=== PATIENT | female | born 2000 | race African-American/Black ===

== ENCOUNTER 2022-12-14 19:18 | Emergency (ER) | payer BC, OTHER, SELFPAY ==
[2022-12-14] VITALS (16 sets, daily range): BP systolic 110–134; BP diastolic 68–90; PULSE 55–93; RESP 8–25; TEMP 37; O2SAT 99–100; BMI 30.9
--- NOTE | 2022-12-14 19:33 | ECG_ITS ---
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
--- NOTE | 2022-12-14 19:35 | ED_ITS ---
HPI - General Adult General Chief complaint: Chest Pain Stated complaint: LT FLANK/BACK PAIN Time Seen by Provider: 12/14/22 19:27 Source: patient Mode of arrival: walk-in History of Present Illness HPI narrative: patient is a 22-year-old female who presents to the emergency department for the evaluation of various complaints. Patient states one week ago she developed twitching in the muscles of her thighs bilaterally. She states she thought she might be dehydrated so she has been drinking electrolyte drinks without improvement. She states five days ago she developed pain in the left upper quadrant of the abdomen/left inferior rib cage with associated pain in the left thoracic back just adjacent to the thoracic spine. She denies fevers, cough, congestion. She has not had any vomiting. She has had diarrhea. She is not concerned for . She took ibuprofen yesterday but she states it gave her heartburn. she also reports occasional hot stinging pain to the left lower and right lower quadrants. She has no low abdominal pain at this time. She is notably anxious at initial interview. Related Data Previous Rx's Medication Instructions Recorded ondansetron 4 mg disintegrating 4 mg PO Q6H PRN nausea and 12/14/22 tablet vomiting #12 tabs pantoprazole 40 mg tablet,delayed 40 mg PO DAILY #7 tabs 12/14/22 release (Protonix) sucralfate 1 gram tablet (Carafate) 1 g PO Q6H PRN abdominal pain #12 12/14/22 tabs Allergies Allergy/AdvReac Type Severity Reaction Status Date / Time No Known Drug Allergies Allergy Verified 12/14/22 19:31 Review of Systems ROS Constitutional Denies: fever or chills Ears, nose, mouth, and throat Denies: throat pain Cardiovascular Reports: chest pain Respiratory Reports: shortness of breath; Denies: cough Gastrointestinal Reports: abdominal pain and diarrhea; Denies: nausea or vomiting Musculoskeletal Reports: back pain and muscle cramps; Denies: neck pain Integumentary/Breast Denies: rash Neurological Denies: headache Endocrine Denies: excessive urination PFSH PFSH Social History Smoking status: Current every day smoker Exam Narrative Exam Narrative: Gen.: Awake, alert, in no distress Head: Normocephalic, atraumatic ENT: Moist mucous membranes Respiratory: No respiratory distress, lungs clear bilaterally Cardio: Regular rate and rhythm Gastrointestinal: Abdomen is soft, nondistended and mildly tender in the left upper quadrant under the inferior left ribs. No guarding or rebound Extremities: Moves extremities equally, no injuries noted Psych: Normal mood and affect Neuro: No focal neuro deficit Skin: Warm, dry, intact Constitutional Vital Signs, click to edit/add: Last Vital Signs Temp 98.6 F 12/14/22 19:25 Pulse 72 12/14/22 21:40 Resp 24 12/14/22 21:40 BP 129/82 12/14/22 21:16 Pulse Ox 100 12/14/22 21:40 O2 Del Method Room Air 12/14/22 19:25 Course Vital Signs Vital signs: Vital Signs Temperature 98.6 F 12/14/22 19:25 Pulse Rate 91 H 12/14/22 19:25 Respiratory Rate 18 12/14/22 19:25 Blood Pressure 134/90 12/14/22 19:25 Pulse Oximetry 99 12/14/22 19:25 Oxygen Delivery Method Room Air 12/14/22 19:25 Temperature 98.6 F 12/14/22 19:25 Pulse Rate 72 12/14/22 21:40 Respiratory Rate 24 12/14/22 21:40 Blood Pressure 129/82 12/14/22 21:16 Pulse Oximetry 100 12/14/22 21:40 Oxygen Delivery Method Room Air 12/14/22 19:25 Medical Decision Making MDM Narrative Medical decision making narrative: patient was treated with IV fluids, she was agreeable to IV Protonix but declined Zofran and Norflex. Vital signs are stable in the Emergency Room, EKG, troponin and d-dimer are within normal limits. Patient with no evidence of anemia, sepsis or other significant abnormalities on labs. Bilirubin, LFTs and lipase are also within normal limits and abdomen is soft and benign in the Emergency Room. Chest and abdominal x-ray show no evidence of acute abnormalities. I had a lengthy discussion with the patient about her lab results and she is significantly relieved, she did become tearful and states that she has issues with anxiety, she has an appointment with her PCP this week to address this. She is very grateful for care. She is agreeable to home Protonix, Carafate and Zofran as needed. Return to the Emergency Room if symptoms change or worsen. Medical Records Medical records reviewed: Yes I reviewed the patient's medical records Lab Data Lab results reviewed: Yes I reviewed the patient's lab results Labs: Lab Results 12/14/22 12/14/22 Range/Units 19:32 19:45 WBC 12.5 H (4.0-11.0) 10^3/uL RBC 4.61 (4.20-5.40) 10^6/uL Hgb 14.5 (12.0-16.0) g/dL Hct 42.6 (36.0-48.0) % MCV 92.4 (81.0-99.0) fL MCH 31.5 (26.7-34.0) pg MCHC 34.0 (29.9-35.2) g/dL RDW 12.4 (11.0-15.0) % Plt Count 321 (150-450) 10^3/uL MPV 9.6 (9.5-13.5) fL Neut % (Auto) 69.0 (43.0-75.0) % Lymph % (Auto) 24.6 (20.5-60.0) % [place] % (Auto) 5.3 (1.7-12.0) % Eos % (Auto) 0.2 L (0.9-7.0) % Baso % (Auto) 0.5 (0.2-2.0) % Neut # (Auto) 8.6 H (1.4-6.5) 10^3/uL Lymph # (Auto) 3.1 (1.2-3.8) 10^3/uL [place] # (Auto) 0.7 (0.3-0.8) 10^3/uL Eos # (Auto) 0.0 (0.0-0.7) 10^3/uL Baso # (Auto) 0.1 (0.0-0.1) 10^3/uL Abs Immat Gran (auto) 0.05 H (0.00-0.03) 10^3/uL Imm/Tot Granulo (auto) 0.4 (0.0-0.5) % PT 10.6 (9.0-11.6) sec INR 1.00 APTT 26.7 (22.3-36.2) sec D-Dimer 0.26 (<=0.59) mg/L FEU Sodium 141 (136-145) mmol/L Potassium 3.5 (3.5-5.1) mmol/L Chloride 104 (98-107) mmol/L Carbon Dioxide 26.3 (21.0-32.0) mmol/L Anion Gap 14.2 BUN 10.0 (7.0-18.0) mg/dL Creatinine 1.11 H (0.55-1.02) mg/dL Est GFR ( Amer) >60 (>=60) Est GFR (Non-Af Amer) >60 (>=60) BUN/Creatinine Ratio 9.0 Glucose 80 (74-106) mg/dL Calcium 9.5 (8.5-10.1) mg/dL Total Bilirubin 0.4 (0.2-1.0) mg/dL AST 19 (15-37) U/L ALT 25 (14-59) U/L Alkaline Phosphatase 94 (46-116) U/L Troponin I High Sens <4.0 L (4.0-51.3) pg/mL Total Protein 8.4 H (6.4-8.2) g/dL Albumin 4.5 (3.4-5.0) g/dL Globulin 3.9 g/dL Albumin/Globulin Ratio 1.2 Lipase 77.0 (73.0-393.0) U/L Serum HCG, Qual Negative (NEGATIVE) Urine Color Lt. yellow (YELLOW) Urine Clarity Clear (CLEAR) Urine pH 6.5 (5.0-9.0) Ur Specific [place] <=1.005 A (1.005-1.025) Urine Protein Negative (NEG/TRACE) mg/dL Urine Glucose (UA) Negative (NEGATIVE) mg/dL Urine Ketones Negative (NEGATIVE) mg/dL Urine Occult Blood Large A (NEGATIVE) Urine Nitrite Negative (NEGATIVE) Urine Bilirubin Negative (NEGATIVE) Urine Urobilinogen 0.2 (0.2-1.0) EU/dL Ur Leukocyte Esterase Negative (NEGATIVE) Urine RBC None seen (0-2) #/HPF Urine WBC 50-75 A (NONE SEEN) #/HPF Ur Squamous Epith Cells Rare (NONE/RARE) #/LPF Urine Crystals None seen (None Seen) #/HPF Urine Bacteria None seen (NONE SEEN) #/HPF Urine Casts None seen (NONE SEEN) #/LPF Urine Mucus None seen (NONE SEEN) Ur Culture Indicated? No Monoscreen Negative (NEGATIVE) Imaging Data Abdominal x-ray: Attestation: I have reviewed the pertinent imaging results. Radiologist's impression: Procedure: XR acute abdomen series EXAM: XR acute abdomen series HISTORY: Chest pain, left upper quad pain COMPARISON: None. TECHNIQUE: AP chest and 2 views of the abdomen FINDINGS: The lung parenchyma is free of consolidation or infiltrate. No pneumothorax or pleural effusion. The heart is not enlarged. The cardiac, mediastinal and hilar contours are unremarkable. The bowel gas pattern is nonobstructed. No visualized free intraperitoneal air or intra-abdominal calcification. The osseous structures are normal. IMPRESSION: No visualized abnormality Electronically authenticated by: MARINA HERNANDEZ Date: 12/14/2022 21:18 ECG Data Attestation: I personally reviewed and interpreted this ECG as follows: (normal sinus rhythm at a rate of ninety-two, no acute ST elevation or ectopy. EKG reviewed by attending physician) Discharge Plan Discharge Chief Complaint: Chest Pain Clinical Impression: Abdominal pain, Chest pain Patient Disposition: Home, Self-Care Time of Disposition Decision: 21:39 Condition: Good Prescriptions / Home Meds: New sucralfate [Carafate] 1 gram tablet 1 g PO Q6H PRN (Reason: abdominal pain) Qty: 12 0RF pantoprazole [Protonix] 40 mg tablet,delayed release (DR/EC) 40 mg PO DAILY Qty: 7 0RF ondansetron 4 mg tablet,disintegrating 4 mg PO Q6H PRN (Reason: nausea and vomiting) Qty: 12 0RF Instructions: Chest Pain (ED), Abdominal Pain (ED) Stand Alone Forms: Portal Instructions Referrals: [facility] [Primary Care Provider] - 1 week Discharge Date/Time: 12/14/22 22:00
[2022-12-14 19:52] LABS: Basophils Absolute Auto 0.1 10^3/uL (0.0-0.1); Basophils Percent Auto 0.5 % (0.2-2.0); Eosinophils Percent Auto 0.2 % (0.9-7.0); Hematocrit 42.6 % (36.0-48.0); Hemoglobin 14.5 g/dL (12.0-16.0); Immature Granulocytes Abs Auto 0.05 10^3/uL (0.00-0.03); Immature Granulocytes Pct Auto 0.4 % (0.0-0.5); Lymphocytes Absolute Auto 3.1 10^3/uL (1.2-3.8); Lymphocytes Percent Auto 24.6 % (20.5-60.0); Mean Corpuscular Hemoglobin 31.5 pg (26.7-34.0); Mean Corpuscular Volume 92.4 fL (81.0-99.0); Mean Platelet Volume 9.6 fL (9.5-13.5); Monocytes Absolute Auto 0.7 10^3/uL (0.3-0.8); Monocytes Percent Auto 5.3 % (1.7-12.0); Neutrophils Absolute Auto 8.6 10^3/uL (1.4-6.5); Platelet Count 321 10^3/uL (150-450); Red Blood Count 4.61 10^6/uL (4.20-5.40); Red Cell Distribution Width 12.4 % (11.0-15.0); White Blood Count 12.5 10^3/uL (4.0-11.0)
[2022-12-14] MEDS: 0.9 % SODIUM CHLORIDE 1,000 ML 1000 ML IV (20:04)
[2022-12-14] MEDS: HYOSCYAMINE SULFATE 0.125 MG TAB.SUBL SL (20:04)
[2022-12-14] MEDS: PANTOPRAZOLE SODIUM 40 MG VIAL IV (20:06)
[2022-12-14 20:08] LABS: D Dimer 0.26 mg/L FEU (<=0.59); Mono Screen NEGATIVE (NEGATIVE); Partial Thromboplastin Time 26.7 sec (22.3-36.2); Prothrombin Time 10.6 sec (9.0-11.6)
[2022-12-14 20:12] LABS: Alanine Aminotransferase 25 U/L (14-59); Albumin Globulin Ratio 1.2; Albumin Level 4.5 g/dL (3.4-5.0); Alkaline Phosphatase 94 U/L (46-116); Anion Gap 14.2; Aspartate Amino Transferase 19 U/L (15-37); Bilirubin Total 0.4 mg/dL (0.2-1.0); Calcium 9.5 mg/dL (8.5-10.1); Carbon Dioxide 26.3 mmol/L (21.0-32.0); Chloride 104 mmol/L (98-107); Estimated GFR (African America >60 (>=60); Estimated GFR (Non-African Ame >60 (>=60); Globulin 3.9 g/dL; Glucose 80 mg/dL (74-106); Potassium 3.5 mmol/L (3.5-5.1); Sodium 141 mmol/L (136-145); Total Protein 8.4 g/dL (6.4-8.2); Troponin I High Sensitivity <4.0 pg/mL (4.0-51.3)
--- NOTE | 2022-12-14 20:12 | ECG_ITS ---
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
--- NOTE | 2022-12-14 20:16 | XR_ITS ---
The [address] [address] Patient Name: EYAL NUÑEZ MRN: [id number] date: 2000 Sex: F Assigned Patient Location: ER Current Patient Location: ER Accession/Order Number: [id number] Exam Date: 12/14/2022 20:50 Report Date: 12/14/2022 21:18 At the request of: ROSALIA GUSMAN Procedure: XR acute abdomen series EXAM: XR acute abdomen series HISTORY: Chest pain, left upper quad pain COMPARISON: None. TECHNIQUE: AP chest and 2 views of the abdomen FINDINGS: The lung parenchyma is free of consolidation or infiltrate. No pneumothorax or pleural effusion. The heart is not enlarged. The cardiac, mediastinal and hilar contours are unremarkable. The bowel gas pattern is nonobstructed. No visualized free intraperitoneal air or intra-abdominal calcification. The osseous structures are normal. XR/XR acute abdomen series IMPRESSION: No visualized abnormality Electronically authenticated by: MARINA HERNANDEZ Date: 12/14/2022 21:18
[2022-12-14 20:38] LABS: Bilirubin Urine NEGATIVE (NEGATIVE); Blood Urine LARGE (NEGATIVE); Clarity Urine CLEAR (CLEAR); Color Urine LT. YELLOW (YELLOW); Glucose Urine UA NEGATIVE (NEGATIVE); Ketones Urine NEGATIVE (NEGATIVE); Leukocyte Esterase Urine NEGATIVE (NEGATIVE); Nitrite Urine NEGATIVE (NEGATIVE); Protein Urine NEGATIVE (NEG/TRACE); Specific Gravity Urine <=1.005 (1.005-1.025); Urobilinogen Urine 0.2 EU/dL (0.2-1.0); pH Urine 6.5 (5.0-9.0)
[2022-12-14 20:43] LABS: Urine Microscopic Indicated YES
[2022-12-14 20:44] LABS: HCG Qualitative NEGATIVE (NEGATIVE)
[2022-12-14 20:49] LABS: Bacteria Urine NONE SEEN #/HPF (NONE SEEN); Cast Seen? NONE SEEN #/LPF (NONE SEEN); Crystals Seen? None Seen #/HPF (None Seen); Mucus Urine NONE SEEN (NONE SEEN); RBC Urine NONE SEEN #/HPF (0-2); Squamous Epithelial Cell Urine RARE #/LPF (NONE/RARE); Urine Culture Indicated NO; WBC Urine 50-75 #/HPF (NONE SEEN)
== END 2022-12-14 22:00 | disposition home or self-care (01) ==
PROVIDERS: Physician Assistant; Emergency Provider Internal Medicine
DX: R07.9 Chest pain, unspecified (principal); R10.9 Unspecified abdominal pain; F17.210 Nicotine dependence, cigarettes, uncomplicated
CPT/HCPCS: 36415; 74022; 80053; 81001; 83690; 84484; 84703; 85025; 85378; 85610; 85730; 86308; 93005; 96374; 99285

== ENCOUNTER 2024-08-23 08:07 | Outpatient (OUT) | payer OTHER, SELFPAY ==
--- OUTSIDE RECORDS SUMMARY | 2024-02-02 13:30 | XMS_ITS ---
Author Organization [facility] Address [address] [place] [phone] Care Team Providers Care Digital Marketing Officer Name Role Phone Sheeba Stock Unavailable [phone] Rere Spann Unavailable [phone] REASON FOR VISIT Recall (A)- Social History Sex Assigned At : Social History Observation Description Sex Assigned At Female Encounters Encounter Location Date Provider Diagnosis [facility] [address] [place], [place] [id number] 02/02/2024 Rere Spann Plan Of Treatment No Information Progress Notes * NUÑEZ AmarisB:2000 (24 yo F)Acc No.[id number]:02/02/2024 Patient: Kady MABRY Provider: Sukhdeep Spann DDS :2000 A ge:24 Y S ex:Female Date:02/02/2024 Address:[address] [place], [place] [id number] Subjective: * Chief Complaints: * 1 . Recall (A)- 24. * Medical History: Objective: * Vitals: Assessment: Plan: * Treatment: * Billing Information: * Visit Code: * Procedure Codes: * Electronic signature of Aarti Spann DDS on 08/23/2024 at 08:13 AM EDT Sign off status: Pending * Provider: Sukhdeep Spann DDS Date: 1 04/03/2023 Generated for Grace hayward/Eusebio/eTransmitting on: 0 08/23/2024 08:13 AM EDT
--- OUTSIDE RECORDS SUMMARY | 2024-08-13 09:00 | XMS_ITS | Encounter Summary ---
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 Name Role Phone Unavailable Primary Care Provider Unavailabl e Reason for Visit * Reason Comments Amenorrhea Encounter Details Date Type Department Care Team (Late st Contact Info) Description 08/13/2024 9:00 AM EDT Initial [facility] [address] [place] [address] [place] [address] GA: [id number] Social History Tobacco Use Types Packs/Day Years Used Date Smoking Tobacco: Never Assessed Estimated Date of Delivery Comme nts Yes 03/18/2025 Based on last me nstrual period of 06/11/2024 Sex and Gender Information Value Date Recorded Sex Assigned at Not on file Legal Sex Female 8:00 PM EDT Gender Identity Female 06/14/2024 2:33 PM EDT Sexual Orientation Not on file documented as of this encounter Last Filed Vital Signs Vital Sign Reading Time Taken Comments Blood Pressure 112/68 08/13/2024 9:48 AM EDT Pulse - - Temperature - - Respiratory Rate - - Oxygen Saturation - - Inhaled Oxygen Concentration - - Weight 88.9 kg (196 lb) 08/13/2024 9:48 AM EDT Height - - Body Mass Index 32.62 02/20/2023 2:54 PM EST documented in this encounter Progress Notes * Jeanne Danielle MA - 08/13/2024 9:00 AM EDT Reason for Appointment: Patient ID: Kady Steve is a 24 y.o. female who presents for Amenorrhea Patient presents today for a Nurse OB Intake appointment. Patient is 9 weeks and 0 days with a 03/18/2025 a 9 week gestation period. OB History Para Term AB Living 2 1 SAB IAB Ectopic Multiple Live Births 1 # Outcome Date GA Lbr Dhaval/2nd Weight Sex Type Anes PTL Lv 2 Current 1 2021 Complete Current Medications: has a current medication list which includes the following prescription(s): ketoconazole. Medical History: Active Ambulatory Problems Diagnosis Date Noted No Active Ambulatory Problems Resolved Ambulatory Problems Diagnosis Date Noted No Resolved Ambulatory Problems No Additional Past Medical History No family history on file. Social History Tobacco Use Smoking status: Not on file Smokeless tobacco: Not on file Substance Use Topics Alcohol use: Not on file Drug use: Not on file No past surgical history on file. No Known Allergies Vitals: Estimated body mass index is 32.62 kg/m?? as calculated from the following: Height as of 02/20/23: 5' 5 . Weight as of this encounter: 196 lb. BP: 112/68 Patient's last menstrual period was 06/11/2024. Assessment/Plan Diagnoses and all orders for this visit: Missed menses - US OB transvaginal; Future - Type and screen; Future - ABO/Rh; Future - CBC and differential - Hemoglobin A1c - RPR - Rubella antibody, IgG - Hepatitis B surface antigen - Hepatitis C antibody - HIV-1 and HIV-2 antibodies - Urine culture - POCT , urine manually resulted - POCT urinalysis dipstick manually resulted 9 weeks gestation of , unspecified gestational age - Type and screen; Future - ABO/Rh; Future - CBC and differential - Hemoglobin A1c - RPR - Rubella antibody, IgG - Hepatitis B surface antigen - Hepatitis C antibody - HIV-1 and HIV-2 antibodies - Rapid drug screen, urine; Future Encounter for supervision of normal first in first trimester - Rapid drug screen, urine; Future Nurse Note: Pt unsure of [place] billion to one. Advised pt if she considers to have [place] done to have the labs drawn together or the hospital will deny the request. PVU. Patient did state she had a miscarriage in 2021 and is nervous in this . Advised patient in 4 weeks she can request the Ipad to see baby for peace of mind up until 20 weeks. After 20 weeks baby is to big to be seen however,we will always have the heart doppler available to hear the heart beat of the baby. PVU. OB Intake: Patient presents today for first OB visit. Patients history has been reviewed in great detail including any potential risks. Patient signed consent forms and patient desires testing in both trimesters. Patient currently has no complaints and has been advised to drink 6-8 glasses of water a day, eatno raw or undercooked meat, and stay away from [facility]. Patient has also been advised to not change litter boxes and eat 6 small meals a day. Patient has been consulted regarding the do's and don'ts ofpregnancy. Patient was given labs and all questions and concerns were answered. Follow Up: Patient is to return in 4 weeks for routine OB appointment. Follow Up: Patient is to have labs drawn at directed and return to office for initial OB appointment with provider. Patient may call office as needed with any concerns or questions. Nurse Visit Completed by: Jeanne Danielle MA documented in this encounter Plan of Treatment Upcoming Encounters Date Type Department Care Team (Late st Contact Info) Description 09/06/2024 10:40 AM EDT Routine [facility] [address] [place] [id number] Salvador Dwyer, DO [address] [place] [address] Scheduled Orders Name Type Priority Associated Diagnoses Orde r Schedule Type and screen Lab Routine Missed menses , unspecified gestational age Expected: 08/13/2024 (Approximate), Expires: 08/13/2025 ABO/Rh Lab Routine Missed menses , unspecified gestational age Expected: 08/13/2024 (Approximate), Expires: 08/13/2025 CBC and differential Lab Routine Missed menses , unspecified gestational age Ordered: 08/13/2024 Hemoglobin A1c Lab Routine Missed menses , unspecified gestational age Ordered: 08/13/2024 RPR Lab Routine Missed menses , unspecified gestational age Ordered: 08/13/2024 Rubella antibody, IgG Lab Routine Missed menses , unspecified gestational age Ordered: 08/13/2024 Hepatitis B surface antigen Lab Routine Missed menses , unspecified gestational age Ordered: 08/13/2024 Hepatitis C antibody Lab Routine Missed menses , unspecified gestational age Ordered: 08/13/2024 HIV-1 and HIV-2 antibodies Lab Routine Missed menses , unspecified gestational age Ordered: 08/13/2024 Urine culture Microbiology Routine Missed menses Ordered: 08/13/2024 Rapid drug screen, urine Lab Routine , unspecified gestational age Encounter for supervision of normal first in first trimester Expected: 08/13/2024 (Approximate), Expires: 08/13/2025 documented as of this encounter Procedures Procedure Name Priority Date/Time Associated Diagnosis Comments POCT , URINE Routine 08/13/2024 9:43 AM EDT Missed menses POCT URINALYSIS DIPSTICK Routine 08/13/2024 9:42 AM EDT Missed menses documented in this encounter Results * (ABNORMAL) POCT , urine manually resulted (08/13/2024 9:43 AM EDT) Preg Test, Ur Positive Negative Urine 08/13/2024 9:43 AM EDT Salvador Dwyer DO POINT OF CARE TEST ENTER/EDIT OR DERABLES Final Result * POCT urinalysis dipstick manually resulted (08/13/2024 9:42 AM EDT) Color, UA Yellow Clarity, UA Clear Glucose, UA Negative Negative - 1999(110) ++++ mg/dL Bilirubin, UA Negative Negative - 4(70) +++ mg/dL Ketones, UA Negative Negative - 160(16) ++++ mg/dL Spec Grav, UA 1.020 1 - 1.03 Blood, UA Negative Negative - 50 Rolan/mcL pH, UA 5.6 5 - 9 Protein, UA Negative Negative - 1999(20) ++++ mg/dL Urobilinogen, UA 0.2 0.2 - 12 mg/dL Leukocytes, UA Negative Negative - 500+++ Bree/mcL Nitrite, UA Negative Negative - Positive Urine 08/13/2024 9:42 AM EDT Salvador Dwyer DO POINT OF CARE TEST ENTER/EDIT OR DERABLES Final Result * US OB transvaginal (08/13/2024 8:50 AM EDT) Anatomical Region Laterality Modality Body Ultrasound 08/13/2024 12:2 1 PM EDT Narrative 08/13/2024 12:21 PM EDT EXAM: US OB TRANSVAGINAL HISTORY: Dating. COMPARISON: None available. TECHNIQUE: Two-dimensional transvaginal grayscale ultrasound imaging of the pelvis was performed. Color Doppler evaluation of the ovaries was also performed. FINDINGS: The uterus demonstrates a normal homogeneous echotexture. The cervix measures 4.2 cm in length and the cervical os is closed. The right ovary measures 4.9 x 3.4 x 4.8 cm and demonstrates a normal echotexture. There is normal color Doppler flow. There is a presumed corpus luteal cyst visualized. The left ovary measures 2.9 x 2.3 x 2.4 cm and demonstrates a normal echotexture. There is normal color Doppler flow. No fluid is present within the cul-de-sac. There is a single, live intrauterine gestation identified with a heart rate of 176 beats per minute and a crown-rump length measurement of 1.8 cm, correlating to a gestational age of 8 weeks 2 days (+/- 5 days). There is no subchorionic hemorrhage visualized. A yolk sac is visualized. IMPRESSION: 1. Single, live intrauterine gestation 9 weeks, 0 days by LMP. Today's ultrasound measurements correlate with a gestational age of 8 weeks 2 days (+/- 5 days). LARS by today's ultrasound is 03/23/2025. 2. Normal color Doppler evaluation of the bilateral ovaries. Interpreted by: Electronically signed by BRAD GONZALEZ II, MD, PHD at 13-Aug-2024 12:20:15 PM [facility] Procedure Note Brad Gonzalez MD - 08/13/2024 EXAM: US OB TRANSVAGINAL HISTORY: Dating. COMPARISON: None available. TECHNIQUE: Two-dimensional transvaginal grayscale ultrasound imaging ofthe pelvis was performed. Color Doppler evaluation of the ovaries was alsoperformed. FINDINGS: The uterus demonstrates a normal homogeneous echotexture. The cervixmeasures 4.2 cm in length and the cervical os is closed. The right ovary measures 4.9 x 3.4 x 4.8 cm and demonstrates a normalechotexture. There is normal color Doppler flow. There is a presumedcorpus luteal cyst visualized. The left ovary measures 2.9 x 2.3 x 2.4 cm and demonstrates a normalechotexture. There is normal color Doppler flow. No fluid is present within the cul-de-sac. There is a single, live intrauterine gestation identified with a fetalheart rate of 176 beats per minute and a crown-rump length measurement of1.8 cm, correlating to a gestational age of 8 weeks 2 days (+/- 5 days).There is no subchorionic hemorrhage visualized. A yolk sac isvisualized. IMPRESSION: 1. Single, live intrauterine gestation 9 weeks, 0 days by LMP. Today'sultrasound measurements correlate with a gestational age of 8 weeks 2 days(+/- 5 days). LARS by today's ultrasound is 03/23/2025. 2. Normal color Doppler evaluation of the bilateral ovaries. Interpreted by: Electronically signed by BRAD GONZALEZ II, MD, PHD 12:20:15 PM [facility] us Salvador Yuliya DO IMG OB US PROCEDURES Final Resul t documented in this encounter Visit Diagnoses Diagnosis Missed menses Missed menses 9 weeks gestation of , unspecified gestational age Encounter for supervision of normal first in first trimester documented in this encounter
--- OUTSIDE RECORDS SUMMARY | 2024-08-23 08:13 | XMS_ITS | Continuity of Care Document ---
Author [facility] Address [address] [place] [address] Problems Unknown Problems Results Test Value / Unit Interpretation Reference Ran ge SARS-COV-2 (COVID19), NAAT[[id number]] Collected: 02/03/2020 09:55 PM Specimen Received: 02/05/2020 05:11 AM SARS-CoV-2 INTERPRETATION [[id number]] Negative Dina l See Note SARS-CoV-2 RNA NOT DETECTEDN egative results do not preclude SARS-CoV-2 infection and should notbe used as the sole basis for patient management decisions. Negativeresults must be combined with clinical observations, patient history,and epidemiological information. Optimum specimen types and timingfor peak viral levels during infections caused by SARS-CoV-2 have notbeen determined. Collection of multiple specimens or types ofspecimens may be necessary to detect virus. Improper specimencollection and handling, sequence variability under primers/probes,or organism present below the limit of detection may lead to falsenegative results. Positive and negative predictive values oftesting are highly dependent on prevalence. False negative testresults are more likely when prevalence is high. SOURCE [[id number]] NASOPHARYNGEAL Normal Note: Methodology is [employer] Real-Time RT-PCR. The expected result or reference range is NEGATIVE (Not Detected). For more information regarding COVID-19 testing to include clinicalinformation, methodology detail, intended use, FDA authorization andrecommended fact sheets for patients or healthcare providers, see NewTest Announcement: SARS-CoV-2 (COVID-19) by NAAT at URL below (note,fact sheets are provided by method given in report:https://www.barter.li/clinicians/client-communications/ Alternatively, see downloadable PDF fact sheet at:https://www.barter.li/HYQHR-71-VO-PCR Allergies, adverse reactions, alerts No known allergies and adverse reactions Medications No administered medications reported Vital Signs No vital signs reported Social History No smoking Hx information available
--- OUTSIDE RECORDS SUMMARY | 2024-08-23 08:13 | XMS_ITS | Encounter Summary ---
Author Organization [facility] Address [address] [place] [address] Care Team Providers Care Supervisor [address] Name Role Phone Unavailable Primary Care Provider Unavailabl e Encounter Details Date Type Department Care Team (Latest Contact Info) Description 08/13/2024 Travel Social History Tobacco Use Types Packs/Day Years [...] on file documented as of this encounter Plan of Treatment Upcoming Encounters Date Type Department Care Team (Late st Contact Info) Description 09/06/2024 10:40 AM EDT Routine [facility] [address] [place] [id number] Salvador Dwyer, DO [address] [place], [facility] documented as of this encounter Visit Diagnoses Not on filedocumented in this encounter
--- OUTSIDE RECORDS SUMMARY | 2024-08-23 08:13 | XMS_ITS | Clinical Summary ---
Author Organization [facility] Address [address] [place] [address] Care Team Providers Care Special Education Para Professional Name Role Phone Unavailable Primary Care Provider Unavailabl e Allergies No known active allergies Medications ketoconazole (NIZOral) 2 % creamIndication s:Tinea corporis Apply topically if needed for itching (2 times a day as needed for itching) 15 g 1 5 Active fluconazole (Diflucan) 150 MG tabletIndicatio ns:Tinea corporis Take 1 tablet (150 mg) by mouth 1 (one) time per week Repeat in 7 days if symptoms persist. 4 tablet 5 08/14/19 25 Discontinu ed(Therapy completed) Encounters Date Type Department Care Team Description 08/13/2024 9:00 AM EDT Initial [facility] [address] [place] [address] [place]: 9w0d 08/13/2024 8:30 AM EDT Ancillary Procedure [facility] [address] [place] [address] Missed menses 08/13/2024 Travel 06/28/2024 10:30 AM EDT Office Visit [facility] [address] [place] [address] Tamera Macias PA Tinea corporis 06/28/2024 Bamboo flowsheet [facility] [address] [place] [address] Tamera Macias PA 06/28/2024 Travel 06/15/2024 1:00 PM EDT Office Visit [facility] [address] [place] [address] Tamera Macias PA Family history of breast cancer; Itch of skin; Redness of skin 06/15/2024 Bamboo flowsheet [facility] [address] [place] [address] Tamera Macias PA 06/15/2024 Travel from Last 3 Months Social History Tobacco Use Types Packs/Day Years Used Date Smoking Tobacco: Never Assessed Estimated Date of Delivery Comme nts Yes 03/18/2025 Based on last me nstrual period of 06/11/2024 Sex and Gender Information Value Date Recorded Sex Assigned at Not on file Legal Sex Female 8:00 PM EDT Gender Identity Female 06/14/2024 2:33 PM EDT Sexual Orientation Not on file Last Filed Vital Signs Vital Sign Reading Time Taken Comments Blood Pressure 112/68 08/13/2024 9:48 AM EDT Pulse - - Temperature - - Respiratory Rate - - Oxygen Saturation - - Inhaled Oxygen Concentration - - Weight 88.9 kg (196 lb) 08/13/2024 9:48 AM EDT Height 165.1 cm (5' 5 ) 02/20/2023 2:54 PM EST Body Mass Index 32.62 02/20/2023 2:54 PM EST Plan of Treatment Upcoming Encounters Date Type Department Care Team (Late st Contact Info) Description 09/06/2024 10:40 AM EDT Routine [facility] [address] [place] [id number] Salvador Dwyer [address] [place], [place] [id number] Health Maintenance Due Date Last Done Comments Influenza Vaccine (Season Ended) 2024 01/31/2020, 01/11/2019, 12/05/2011, Additional history exists Procedures Procedure Name Priority Date/Time Associated Diagnosis Comments POCT , URINE Routine 08/13/2024 9:43 AM EDT Missed menses POCT URINALYSIS DIPSTICK Routine 08/13/2024 9:42 AM EDT Missed menses US OB TRANSVAGINAL Routine 08/13/2024 8: 50 AM EDT Missed menses POCT URINALYSIS DIPSTICK Routine 06/15/2024 1:35 PM EDT Family history of breast cancer Redness of skin POCT , URINE Routine 06/15/2024 1:34 PM EDT Family history of breast cancer Redness of skin from Last 3 Months Results * (ABNORMAL) POCT , urine manually resulted (08/13/2024 9:43 AM EDT) Only the most recent of2 resultswithin the time period is included. Preg Test, Ur Positive Negative Urine 08/13/2024 9:43 AM EDT Salvador Dwyer DO POINT OF CARE TEST ENTER/EDIT OR DERABLES Final Result * POCT urinalysis dipstick manually resulted (08/13/2024 9:42 AM EDT) Only the most recent of2 resultswithin the time period is included. Color, UA Yellow Clarity, UA Clear Glucose, UA Negative Negative - 1999(110) ++++ mg/dL Bilirubin, UA Negative Negative - 4(70) +++ mg/dL Ketones, UA Negative Negative - 160(16) ++++ mg/dL Spec Grav, UA 1.020 1 - 1.03 Blood, UA Negative Negative - 50 Rolan/mcL pH, UA 5.6 5 - 9 Protein, UA Negative Negative - 2000(20) ++++ mg/dL Urobilinogen, UA 0.2 0.2 - [...] II, MD, PHD at 13-Aug-2024 12:20:15 PM [facility] Procedure Note Brad Gonzalez MD - [...] signed by BRAD GONZALEZ II, MD, PHD [id number] 12:20:15 PM [facility] us Salvador Dwyer DO IMG OB US PROCEDURES Final Resul t from Last 3 Months Insurance [employer]
--- OUTSIDE RECORDS SUMMARY | 2024-08-23 08:14 | XMS_ITS | Clinical Summary ---
Author Organization [facility] tem Address [id number] [address] [place] [address] Care Team Providers Care General Merchandise Manager Name Role Phone Eric Lopez PA-C Primary Care Provider + [phone] Allergies Active Allergy Reactions Criticality Noted Date Comments No Known Drug Allergies 10/14/2016 Medications * This document contains information received from the source organization and may not represent a complete record from that organization. 21-iron fu-folic acid ( COMPLETE) 14 mg iron- 400 mcg tablet Take 1 each by mouth daily. 60 tablet 1 04/26/2021 Active Active Problems Problem Noted Date Diagnosed Date Severe major depression, single episode 07/03/19 18 Depressive reaction 12/05/2016 Generalized anxiety disorder 12/05/2016 Immunizations Immunization Administration Dates Next Due Influenza, Injectable, quadrivalent (PF) 020,01/11/2019 Meningococcal B, Omv 01/31/2020,01/11/2019 Meningococcal Conjugate 01/11/2019 Family History Medical History Relation Name Comments ADD / ADHD Brother Alcohol abuse Father Anxiety disorder Father Depression Father Drug abuse Father Depression Maternal Grandfather Bipolar disorder Mother Alcohol abuse Paternal Aunt Depression Paternal Aunt Drug abuse Paternal Aunt OCD Paternal Aunt Alcohol abuse Paternal Uncle Depression Paternal Uncle Drug abuse Paternal Uncle OCD Paternal Uncle Relation Name Status Comments Brother Father Maternal Grandfather Mother Paternal Aunt Paternal Uncle Social History Tobacco Use Types Packs/Day Years Used Date Smoking Tobacco: Every Day Vaping/E-cigarettes Smokeless Tobacco: Never Alcohol Use Standard Drinks/Week Comments No 0 (1 standard drink = 0.6 oz pur e alcohol) PHQ-2 Answer Date Recorded Total Score 5 01/11/2019 Childcare Answer Date Recorded Childcare Unknown 09/02/2018 Employment Answer Date Recorded Employment Unknown 09/02/2018 Hunger Screening Answer Date Recorded Within the past 12 months we worried whether our food would run out before we got money to buy more. Never True 08/31/2022 Within the past 12 months th e food we bought just didn't last and we didn't have money to get more. Never True 08/31/2022 Purpose - Life Answer Date Recorded Purpose and direction in life Unknown Comments No Sex and Gender Information Value Date Recorded Sex Assigned at Female 01/25/2021 10:45 PM EDT Legal Sex Female 11:59 AM EDT Gender Identity Female 01/25/2021 10:45 PM EDT Sexual Orientation Not on file Last Filed Vital Signs Vital Sign Reading Time Taken Comments Blood Pressure 134/85 08/31/2022 2:08 PM EDT Pulse 95 08/31/2022 2:08 PM EDT Temperature 36.7 C (98.1 F) 08/31/2022 2:08 PM EDT Respiratory Rate 22 08/31/2022 2:08 PM EDT Oxygen Saturation 99% 08/31/2022 2:08 PM EDT Inhaled Oxygen Concentration - - Weight 94.3 kg (208 lb) 08/31/2022 2:08 PM EDT Height 160 cm (5' 3 ) 08/31/2022 2:08 PM EDT Body Mass Index 36.85 08/31/2022 2:08 PM EDT Plan of Treatment Health Maintenance Due Date Last Done Comments Depression Screening 2014 Tobacco Screening 2014 Pap Smear 2023 Adult BMI Screening 09/01/2023 08/31/2022 COVID-19 Vaccine (2023-2 5 season) 2023 10/05/2020, 09/07/2020 Influenza Vaccine 11/22/2024 01/31/2020, , 12/05/2011, Additional history exists DTaP,Tdap and Td Vaccines (7 - Td or Tdap) 12/12/2024 12/12/2014, 04/30/2006, 07/16/2003, Additional history exists Goals Goal Patient Goal Type Associated Problems Recent Progress Patient-Stated? 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 Intervention: 1:1 group therapy, psychological evaluation, follow up, medication education and family meeting and positive milieu Goal: Provide healthy coping skills to manage stress Intervention: 1:1 group therapy, psychological evaluation, follow up, medication education and family meeting and positive milieu Goal: Teach pt steps to improve self esteem Intervention: 1:1 group therapy, psychological evaluation, follow up, medication education and family meeting and positive milieu Medical Devices Not on file Insurance [facility] CARESOURCE MEDICAID ANTH [employer] MEDICAID [employer] MEDICAID Care Teams General Merchandise Manager Relationship Specialty Start Date End Date Eric Lopez PA-C [address] [place] [address] PCP - General Physician Metal Patternmaker 10/05/22
--- OUTSIDE RECORDS SUMMARY | 2024-08-23 08:14 | XMS_ITS | Patient Health Record ---
Author Organization [facility] Address [address] [place], [place] [address] Care Team Providers Care Assistant Terminal Manager Name Role Phone Sheeba Stock Unavailable [phone] Milka Spannnifer Unavailable [phone] Allergies No Known Allergies Reason For Referral No Information Medications Medication SIG (Take, Route, Frequency, Duration) Notes Start Date End Date Status Cyclobenzaprine HCl 10 MG 1 tablet as ne eded Orally Once a day for 30 days 01/20/2023 Not-Taking Dicyclomine HCl 20 MG 1 tablet Orally Th ree times a day for 30 days Not-Taking Social History Tobacco Use: Social History Observation Description Date Details (start date - stop date) Never Smoker 03/24/2019 - NA Sex Assigned At : Social History Observation Description Sex Assigned At Female Household Question Answer Notes Number of adults in household: 2 Tobacco Use/Smoking Question Answer Notes Tobacco use: nonsmoker patient enter ed data When did you start smoking? 03/24/2019 Tobacco use other than smoking: Question Answer Notes Are you an other tobacco user? Yes v ape CAGE-AID Questionnaire (2018 Edition) Question Answer Notes Have you ever felt that you ought to cut down on your drinking or drug use? No patient entered data Have people annoyed you by c riticizing your drinking or drug use? No patient entered data Have you ever felt bad or gu ilty about your drinking or drug use? No patient entered data Have you ever had a drink or used drugs first thing in the morning to steady your nerves or to get rid of a hangover? No patient entered data CAGE-AID Score 0 Interpretation Negative PRAPARE Question Answer Notes Date Completed/Updated: 11/13/2022 catina nt entered data What is your current housing situation? I have housing patient entered data Are you worried about losing your housing? No patient entered data What is the highest level of school that you have finished? 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 Check all that apply I do not have problems meeting my needs Has lack of transportation k ept you from medical appointments, meetings, work or from getting things needed for daily living? No How often do you see or talk to people that you care about and feel close to? (For example: talking to friends on the phone, visiting friends or family, going to yarsani or club meetings) 1 or 2 times a week patient entered data How stressed are you? Stress is when someone feels tense, nervous, anxious, or can't sleep at night because their mind is troubled Quite a bit patient entered data In the past year have you sp ent more than 2 nights in a row in a usp, fci, residential center, or juvenile correctional facility? No patient entered abhishek a Are you a refugee? No patient en tered data What country are you from? [place] pa tient entered data Do you feel physically and emotionally safe where you currently live? Yes patient entered data In the past year, have you b een afraid of your partner or ex-partner? No patient entered data PRAPARE Score: 6 Problems Problem Type SNOMED Code ICD Code Onset Dates Problem Status W/U Status Risk Notes Problem [id number] Anxiety (F41.9) Active confirmed Problem 107321869 BMI 30.0-30.9,adul t (Z68.30) Active confirmed Plan Of Treatment No Information Insurance Providers Payer Name Payer Address Payer Phone Subscriber Number Group Number Insured Name Patient Relationship to Insured Coverage Start Date Coverage End Date DCaresou rce [address] [facility] [address] [place] [address] [id number] Kady Steve Self - patient is the insured 3 Thayne X [address] [place] [address] [id number] Domingo Steve Child - Insured does not have Financial Responsibility (includes legally adopted child) 1 DMedicai d CFC after [employer] u[employer] [address] [place], [place] [phone] [id number] Kady Steve Self - patient is the insured 3 Caresour ce [facility] [address] [place], [place] [id number] Kady Steve Self - patient is the insured 3 Medicaid CFC after C[employer] ce [address] [address] [id number] Kady Steve Self - patient is the insured 3 Medical (General) History Surgical History Surgery Date(Month/Year) tonsils and adenoids removed 2008
[2024-08-23 08:50] LABS: BOX Test Reference Lab UNITY; BOX Test Sent Out UNITY
[2024-08-23 09:00] LABS: Basophils Absolute Auto 0.1 10^3/uL (0.0-0.1); Basophils Percent Auto 0.4 % (0.2-2.0); Eosinophils Absolute Auto 0.1 10^3/uL (0.0-0.7); Eosinophils Percent Auto 0.7 % (0.9-7.0); Hematocrit 37.4 % (36.0-48.0); Hemoglobin 12.6 g/dL (12.0-16.0); Immature Granulocytes Abs Auto 0.06 10^3/uL (0.00-0.03); Immature Granulocytes Pct Auto 0.4 % (0.0-0.5); Lymphocytes Absolute Auto 3.6 10^3/uL (1.2-3.8); Lymphocytes Percent Auto 26.9 % (20.5-60.0); Mean Corpuscular HGB Conc 33.7 g/dL (29.9-35.2); Mean Corpuscular Hemoglobin 31.3 pg (26.7-34.0); Mean Platelet Volume 9.6 fL (9.5-13.5); Monocytes Absolute Auto 0.8 10^3/uL (0.3-0.8); Monocytes Percent Auto 6.2 % (1.7-12.0); Neutrophils Absolute Auto 8.7 10^3/uL (1.4-6.5); Neutrophils Percent Auto 65.4 % (43.0-75.0); Platelet Count 265 10^3/uL (150-450); Red Blood Count 4.02 10^6/uL (4.20-5.40); Red Cell Distribution Width 12.4 % (11.0-15.0); White Blood Count 13.4 10^3/uL (4.0-11.0)
[2024-08-23 09:13] LABS: Amphetamine Screen Urine NEGATIVE (NEGATIVE); Barbiturates Screen Urine NEGATIVE (NEGATIVE); Benzodiazepines Screen Urine NEGATIVE (NEGATIVE); Buprenorphine Screen Urine NEGATIVE (NEGATIVE); Cannabinoid Screen Urine NEGATIVE (NEGATIVE); Cocaine Screen Urine NEGATIVE (NEGATIVE); Methadone Screen Urine NEGATIVE (NEGATIVE); Methamphetamines Screen Urine NEGATIVE (NEGATIVE); Opiate Screen Urine NEGATIVE (NEGATIVE); Oxycodone Screen Urine NEGATIVE (NEGATIVE); Phencyclidine Screen Urine NEGATIVE (NEGATIVE); Tricyclic Antidepressant Urine NEGATIVE (NEGATIVE)
[2024-08-23 09:25] LABS: Estimated Average Glucose 103 mg/dL; Glycohemoglobin A1C 5.2 % (4.5-6.2)
[2024-08-24 05:09] LABS: HIV Ab/p24 Ag Screen Non Reactive (Non Reactive)
[2024-08-24 06:09] LABS: HBsAg Screen Negative (Negative); HCV Ab Non Reactive (Non Reactive)
[2024-08-24 10:08] LABS: Rubella Antibodies, IgG 0.96 index (Immune >0.99)
[2024-08-24 13:08] LABS: Rapid Plasma Reagin, Quant Non Reactive titer (NonRea<1:1)
== END 2024-08-23 08:08 | disposition home or self-care (01) ==
LOC: LAB 08:12
PROVIDERS: Visit Provider Obstetrics & Gynecology
DX: Z34.01 Encounter for supervision of normal first pregnancy, first trimester (principal); Z36.0 Encounter for antenatal screening for chromosomal anomalies; N92.6 Irregular menstruation, unspecified
CPT/HCPCS: 36415; 80307; 83036; 85025; 86592; 86762; 86803; 86850; 86900; 86901; 87086; 87340; 87389